=== PATIENT | male | born 1990 | race Caucasian/White ===

== ENCOUNTER 2019-09-21 23:08 | Emergency (ER) | payer BC ==
--- NOTE | 2019-09-21 23:49 | EDM.PDOC ---
ED HPI GENERAL MEDICAL PROBLEM - General Chief Complaint: Lower Extremity Injury/Pain Stated Complaint: POSSIBLE BROKEN RIGHT FOOT Time Seen by Provider: 09/21/19 23:47 Source of Information: Reports: Patient History Limitations: Reports: No Limitations - History of Present Illness INITIAL COMMENTS - FREE TEXT/NARRATIVE: Patient is a 29-year-old male who presents with right foot pain after he dropped to 10 pound bricks on his foot accidentally prior to arrival. 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 Patient is using his 's crutches to ambulate currently. He denies any other injuries has no other complaints. He is taking nothing for his current pain symptoms. Pain is worse with movement. Onset: Today, Sudden Location: Reports: Lower Extremity, Right Quality: Reports: Ache Severity: Moderate Improves with: Reports: Rest Worsens with: Reports: Movement Context: Reports: Trauma Associated Symptoms: Reports: No Other Symptoms Right Foot Pain Score (Numeric/FACES): 6 - Related Data Allergies Allergy/AdvReac Type Severity Reaction Status Date / Time No Known Allergies Allergy Verified 09/21/19 23:24 Home Meds: Home Meds . [No Known Home Meds] 09/21/19 [History] Past Medical History - Infectious Disease History Infectious Disease History: Reports: Chicken Pox - Past Surgical History Male Surgical History: Reports: Vasectomy Social & Family History - Family History Family Medical History: Noncontributory - Tobacco Use Smoking Status *Q: Never Smoker Second Hand Smoke Exposure: No - Recreational Drug Use Recreational Drug Use: No Review of Systems - Review of Systems Review Of Systems: Comprehensive ROS is negative, except as noted in HPI. ED EXAM, GENERAL - Physical Exam Exam: See Below Exam Limited By: No Limitations General Appearance: Alert, No Apparent Distress Head: Atraumatic Neck: Normal Inspection Respiratory/Chest: No Respiratory Distress Extremities: Joint Swelling, Limited Range of Motion, Other (Ecchymosis with pain and swelling to the dorsum of his right foot.\). No: Non-Tender Neurological: Alert Psychiatric: Normal Affect Course - Vital Signs Text/Narrative:: . Patient's right foot shows no fracture. Are adjusting his crutches and I will give him a prescription for some Dahlen. He is advised to use elevation ice as long as well swollen follow-up with orthopedic doctor PCP on improving return to ER if worse. Last Recorded V/S: Last Vital Signs Temp 36.0 C L 09/21/19 23:17 Pulse 90 09/21/19 23:17 Resp 14 09/21/19 23:17 BP 139/86 09/21/19 23:17 Pulse Ox 96 09/21/19 23:17 - Orders/Labs/Meds Orders: Active Orders 24 hr Category Date Time Status Foot Comp Min 3V Rt [CR] Stat Exams 09/21/19 23:40 Taken Departure - Departure Time of Disposition: 00:19 Disposition: Home, Self-Care 01 Condition: Good Clinical Impression: Contusion of foot, right - Discharge Information Instructions: Foot Contusion Referrals: PCP,None [Primary Care Provider] - Forms: ED Department Discharge Additional Instructions: Ice and elevation. Naprosyn with meals. Dahlen if needed. Follow-up with PCP or orthopedic provider if not improving. Return to ER if worse. Crutches as needed. Care Plan Goals: The following information is given to patients seen in the emergency department who are being discharged to home. This information is to outline your options for follow-up care. We provide all patients seen in our emergency department with a follow-up referral. The need for follow-up, as well as the timing and circumstances, are variable depending upon the specifics of your emergency department visit. If you don't have a primary care physician on staff, we will provide you with a referral. We always advise you to contact your personal physician following an emergency department visit to inform them of the circumstance of the visit and for follow-up with them and/or the need for any referrals to a consulting specialist. The emergency department will also refer you to a specialist when appropriate. This referral assures that you have the opportunity for follow-up care with a specialist. All of these measure are taken in an effort to provide you with optimal care, which includes your follow-up. Under all circumstances we always encourage you to contact your private physician who remains a resource for coordinating your care. When calling for follow-up care, please make the office aware that this follow-up is from your recent emergency room visit. If for any reason you are refused follow-up, please contact the [facility] Emergency Department at and asked to speak to the emergency department charge nurse. Sepsis Event Note - Evaluation Sepsis Screening Result: No Definite Risk - Focused Exam Vital Signs: Vital Signs Temp Pulse Resp BP Pulse Ox 09/21/19 23:17 36.0 C L 90 14 139/86 96 Date Exam was Performed: 09/22/19 Time Exam was Performed: 00:18 - My Orders Last 24 Hours: My Active Orders 09/21/19 23:40 Foot Comp Min 3V Rt [CR] Stat - Assessment/Plan Last 24 Hours: My Active Orders 09/21/19 23:40 Foot Comp Min 3V Rt [CR] Stat
--- NOTE | 2019-09-22 00:26 | CR ---
Indication: Foot injury Technique: Three views right foot Comparison: None Findings: Bones: Alignment is normal. No fractures or bone lesions. Joint spaces: Unremarkable. Soft tissues: Soft tissue swelling along the dorsum of foot. Impression: Soft tissue swelling along the dorsum of the foot. No acute fracture or subluxation. Dictated by Alla Phoenix MD @ Sep 22 2019 12:23AM Signed by Dr. Alla Phoenix @ Sep 22 2019 12:25AM
== END 2019-09-22 00:35 | disposition home or self-care (01) ==
LOC: MW.ED 23:08
DX: S90.31XA Contusion of right foot, initial encounter (principal); W20.8XXA Other cause of strike by thrown, projected or falling object, initial encounter
CPT/HCPCS: 73630-26-RT; 73630-RT; 99282; 99283